=== PATIENT | female | born 1990 | race Caucasian/White ===

== ENCOUNTER 2021-03-06 18:15 | Emergency (ER) | payer BC ==
[2021-03-06] MEDS ORDERED: NA CHLORIDE 0.9% 1,000 ML ONE (20:20)
[2021-03-06] MEDS ORDERED: ONDANSETRON 4 MG/2 ML VIAL ONE (20:20)
[2021-03-06] MEDS ORDERED: MORPHINE 2 MG/ML SYR ONE (20:20)
[2021-03-06] MEDS ORDERED: FAMOTIDINE 20 MG/2 ML VIAL IV ONE (20:20)
[2021-03-06 20:21] LABS: Urine Blood 3+ (Negative); Urine Glucose Negative (Negative); Urine Protein 1+ (Negative); Urine Specific Gravity 1.025 (1.005-1.030); Urine pH 6.5 (5.0-7.0)
[2021-03-06 20:26] LABS: Absolute Lymphocytes (CBC) 0.8 K/uL (0.7-4.9); Basophils % 0.1 % (0-1.3); Hematocrit 37.2 % (36.0-45.0); Lymphocytes % 6.6 % (15.3-44.8); MPV 8.7 fL (7.6-11.3); RBC Red Blood Cell Count 4.04 M/uL (3.86-4.86)
[2021-03-06 20:30] LABS: Urine Specific Gravity/Preg 1.025 (1.005-1.030)
[2021-03-06 20:43] LABS: ALT/SGPT 18 U/L (12-78); AST/SGOT 14 U/L (15-37); Albumin 3.5 g/dL (3.4-5.0); Alkaline Phosphatase 90 U/L (45-117); BUN Blood Urea Nitrogen 13 mg/dL (7-18); Bicarbonate 24 mmol/L (21-32); Bilirubin Direct 0.3 mg/dL (0-0.2); Bilirubin Total 1.2 mg/dL (0.2-1.0); Glucose Level 94 mg/dL (74-106); Lipase 43 U/L (73-393); Potassium 3.3 mmol/L (3.5-5.1); Protein, Total 6.9 g/dL (6.4-8.2); Sodium Level 138 mmol/L (136-145)
[2021-03-06 21:03] LABS: Blood Morphology Comment NOT SEEN (NOT SEEN); Platelet Estimate ADEQ; White Blood Cell Scan OK (OK)
--- NOTE | 2021-03-06 21:56 | EDPHYS ---
Physician Documentation [facility] Name: Cole Mills Age: 30 yrs Sex: Female : 1990 Arrival Date: 03/06/2021 Time: 18:17 Bed 14 Private MD: ED Physician Pee Cruz HPI: 03/06 20:27 This 30 yrs old Female presents to ER via Ambulatory with complaints of mh7 Abdominal Pain, Nausea. 20:28 The patient presents with abdominal pain in the epigastric area. Onset: The mh7 symptoms/episode began/occurred this morning, today, at 03:00. The symptoms do not radiate. Associated signs and symptoms: Pertinent positives: nausea and vomiting, Pertinent negatives: anorexia, blood in stools, chest pain, constipation, diarrhea, dysuria, fever, headache, hematuria, palpitations, shortness of breath, vaginal discharge, vomiting blood. The symptoms are described as intermittent, vague, waxing/waning. Modifying factors: The symptoms are alleviated by nothing, the symptoms are aggravated by nothing. Severity of pain: At its worst the pain was moderate this morning, in the emergency department the pain has improved moderately. EMS DIRECTOR: 22:01 LMP 03/06/2021 zb Historical: - Allergies: 18:23 No Known Allergies; ll1 - PMHx: 18:23 None; ll1 - PSHx: 18:23 Tonsillectomy; Adenoids; ll1 - Immunization history:: Client reports having NOT received the Covid vaccine. Flu vaccine is not up to date. - Social history:: Smoking status: Patient denies any tobacco usage or history of. ROS: 20:28 Constitutional: Negative for fever, chills, and weight loss, Eyes: Negative for injury, mh7 pain, redness, and discharge, ENT: Negative for injury, pain, and discharge, Neck: Negative for injury, pain, and swelling, Cardiovascular: Negative for chest pain, palpitations, and edema, Respiratory: Negative for shortness of breath, cough, wheezing, and pleuritic chest pain, Back: Negative for injury and pain, : Negative for injury, bleeding, discharge, and swelling, MS/Extremity: Negative for injury and deformity, Skin: Negative for injury, rash, and discoloration, Neuro: Negative for headache, weakness, numbness, tingling, and seizure, Psych: Negative for depression, anxiety, suicide ideation, homicidal ideation, and hallucinations, Allergy/Immunology: Negative for hives, rash, and allergies, Endocrine: Negative for neck swelling, polydipsia, polyuria, polyphagia, and marked weight changes, Hematologic/Lymphatic: Negative for swollen nodes, abnormal bleeding, and unusual bruising. Exam: 20:28 Constitutional: This is a well developed, well nourished patient who is awake, alert, mh7 and in no acute distress. Head/Face: Normocephalic, atraumatic. Eyes: Pupils equal round and reactive to light, extra-ocular motions intact. Lids and lashes normal. Conjunctiva and sclera are non-icteric and not injected. Cornea within normal limits. Periorbital areas with no swelling, redness, or edema. Neck: Trachea midline, no thyromegaly or masses palpated, and no cervical lymphadenopathy. Supple, full range of motion without nuchal rigidity, or vertebral point tenderness. No Meningismus. Chest/axilla: Normal chest wall appearance and motion. Nontender with no deformity. No lesions are appreciated. Cardiovascular: Regular rate and rhythm with a normal S1 and S2. No gallops, murmurs, or rubs. Normal PMI, no JVD. No pulse deficits. Respiratory: Lungs have equal breath sounds bilaterally, clear to auscultation and percussion. No rales, rhonchi or wheezes noted. No increased work of breathing, no retractions or nasal flaring. Back: No spinal tenderness. No costovertebral tenderness. Full range of motion. Skin: Warm, dry with normal turgor. Normal color with no rashes, no lesions, and no evidence of cellulitis. MS/ Extremity: Pulses equal, no cyanosis. Neurovascular intact. Full, normal range of motion. Neuro: Awake and alert, GCS 15, oriented to person, place, time, and situation. Cranial nerves II-XII grossly intact. Motor strength 5/5 in all extremities. Sensory grossly intact. Cerebellar exam normal. Normal gait. Psych: Awake, alert, with orientation to person, place and time. Behavior, mood, and affect are within normal limits. 20:28 Abdomen/GI: Inspection: abdomen appears normal, Bowel sounds: normal, in all quadrants, mh7 Palpation: mild abdominal tenderness, in the epigastric area, mass, is not appreciated, rebound tenderness, is not appreciated, voluntary guarding, is not appreciated, involuntary guarding, is not appreciated, no appreciated organomegaly, Rectal exam: the exam is deferred, because of patient request, Indicators: McBurney's point is not tender, Simpson's sign is negative, Rovsing's sign is negative, Obturator sign is negative, Psoas sign is negative, Liver: no appreciated palpable abnormalities, Hernia: not appreciated. Vital Signs: 18:20 BP 102 / 72; Pulse 100; Resp 16; Temp 98.7; Pulse Ox 100% ; Weight 75.75 kg; Height 5 ll1 ft. 4 in. (162.56 cm); Pain 3/10; 20:29 BP 96 / 67; Pulse 73; Resp 16; Pulse Ox 100% on R/A; zb 21:55 BP 101 / 57; Pulse 85; Resp 16; Pulse Ox 100% on R/A; zb 18:20 Body Mass Index 28.67 (75.75 kg, 162.56 cm) ll1 MDM: 20:28 Differential diagnosis: bowel obstruction, gastritis, gastroesophageal reflux disease, mh7 non-specific abd pain, urinary tract infection. Data reviewed: vital signs, nurses notes, lab test result(s), CBC, electrolytes, urinalysis, UPT: negative. Data interpreted: Pulse oximetry: on room air is 100 %. Interpretation: normal. Counseling: I had a detailed discussion with the patient and/or guardian regarding: the historical points, exam findings, and any diagnostic results supporting the discharge/admit diagnosis, lab results, the need for outpatient follow up, to return to the emergency department if symptoms worsen or persist or if there are any questions or concerns that arise at home. Response to treatment: the patient's symptoms have resolved after treatment, the patient's blood pressure is in an acceptable range, mental status has returned to baseline, the patient no longer shows bradycardia, the patient is not short of breath, the patient is not tachycardic, the patient's pain is gone, the patient's temperature has normalized, Tolerating PO intake without any difficultly. Refusal of service: The patient/guardian displays adequate decision making capability and despite a detailed discussion of alternatives, benefits, risks, and consequences refuses: CT Scan. 21:55 Patient medically screened. [facility] 03/06 19:37 Order name: Basic Metabolic Panel [facility] 03/06 19:37 Order name: CBC with Diff; Complete Time: 21:09 [facility] 03/06 19:37 Order name: Hepatic Function; Complete Time: 21:09 [facility] 03/06 19:37 Order name: Lipase; Complete Time: 21:09 [facility] 03/06 19:38 Order name: Basic Metabolic Panel; Complete Time: 21:09 [facility] 03/06 20:21 Order name: Urine Dipstick-Ancillary; Complete Time: 20:27 [facility] 03/06 19:37 Order name: IV Saline Lock; Complete Time: 20:15 [facility] 03/06 19:37 Order name: Labs collected and sent; Complete Time: 20:15 [facility] 03/06 20:24 Order name: Urine --Ancillary (enter results); Complete Time: 20:43 03/06 21:03 Order name: CBC Smear Scan; Complete Time: 21:09 [facility] 03/06 19:37 Order name: Urine Dipstick-Ancillary (obtain specimen); Complete Time: 20:15 [facility] 03/06 19:37 Order name: Urine Test (obtain specimen); Complete Time: 20:15 [facility] 03/06 21:29 Order name: PO challenge; Complete Time: 21:36 [facility] Administered Medications: 20:13 Drug: Pepcid (famotidine) 20 mg Route: IVP; Site: right antecubital; zb 21:24 Follow up: Response: No adverse reaction; Marked relief of symptoms zb 20:14 Drug: Zofran (Ondansetron) 4 mg Route: IVP; Site: right antecubital; zb 21:23 Follow up: Response: No adverse reaction; Marked relief of symptoms zb 20:15 Drug: NS 0.9% 1000 ml Route: IV; Rate: 1000 ml; Site: right antecubital; zb 20:15 Not Given (Patient Refused): morphine 2 mg IVP once; (PAIN>8) RASS on ADMN: Combtv4, zb Very Agttd3, Agttd2, Rstlss1, AlertClm0, Drwsy-1, LtSdtn-2, ModSdtn-3, DpSdtn-4, UnArsble-5 x2 Disposition: 03/06/21 21:55 Discharged to Home. Impression: Gastritis, unspecified. - Condition is Stable. - Discharge Instructions: Gastritis, Adult, [id number]. - Prescriptions for Zofran ODT 4 mg Oral tablet,disintegrating - place 1 tablet by TRANSLINGUAL route every 8 hours As needed; 6 tablet. Pepcid 20 mg Oral Tablet - take 1 tablet by ORAL route every 12 hours for 5 days; 10 tablet. - Medication Reconciliation Form, Thank You Letter, Antibiotic Education, Prescription Opioid Use form. - Follow up: Private Physician; When: 1 - 2 days; Reason: Recheck today's complaints, Continuance of care, Re-evaluation by your physician. - Problem is new. - Symptoms are resolved. Signatures: Dispatcher [employer] EDMS Rohit Butts RN RN ll1 Pee Cruz MD MD mh7 Irene Perez RN RN zb Corrections: (The following items were deleted from the chart) 22:04 21:55 03/06/2021 21:55 Discharged to Home. Impression: Gastritis, unspecified. zb Condition is Stable. Forms are Medication Reconciliation Form, Thank You Letter, Antibiotic Education, Prescription Opioid Use. Follow up: Private Physician; When: 1 - 2 days; Reason: Recheck today's complaints, Continuance of care, Re-evaluation by your physician. Problem is new. Symptoms are resolved. mh7
--- NOTE | 2021-03-06 21:56 | ER ---
Nurse's Notes [facility] Name: Cole Mills Age: 30 yrs Sex: Female : 1990 Arrival Date: 03/06/2021 Time: 18:17 Bed 14 Private MD: Diagnosis: Gastritis, unspecified Presentation: 03/06 18:20 Chief complaint: Patient states: Epigastric pain with N/V since 3 am. No fever. ll1 Coronavirus screen: Client denies travel out of the [place] in the last 14 days. At this time, the client does not indicate any symptoms associated with coronavirus-19. Ebola Screen: Patient denies travel to an Ebola-affected area in the 21 days before illness onset. Initial Sepsis Screen: Does the patient meet any 2 criteria? No. Patient's initial sepsis screen is negative. Does the patient have a suspected source of infection? Yes: Acute abdominal pain. Risk Assessment: Do you want to hurt yourself or someone else? Patient reports no desire to harm self or others. Onset of symptoms was March 06, 2021. 18:20 Method Of Arrival: Ambulatory [facility] 18:20 Acuity: MADINA 3 1 GRINDER HARDBOARD: 22:01 LMP 03/06/2021 zb Historical: - Allergies: 18:23 No Known Allergies; ll1 - PMHx: 18:23 None; ll1 - PSHx: 18:23 Tonsillectomy; Adenoids; ll1 - Immunization history:: Client reports having NOT received the Covid vaccine. Flu vaccine is not up to date. - Social history:: Smoking status: Patient denies any tobacco usage or history of. Screenin:16 Abuse screen: Denies threats or abuse. Denies injuries from another. Nutritional zb screening: No deficits noted. Tuberculosis screening: No symptoms or risk factors identified. Fall Risk None identified. Assessment: 20:16 General: Appears in no apparent distress. uncomfortable, Behavior is calm, cooperative. zb Pain: Complains of pain in abdomen Pain currently is 2 out of 10 on a pain scale. at worst was 9 out of 10 on a pain scale. Quality of pain is described as tender. Neuro: Level of Consciousness is awake, alert, obeys commands, Oriented to person, place, time, situation. Cardiovascular: Capillary refill < 3 seconds in bilateral. Respiratory: Airway is patent Respiratory effort is even, unlabored, Respiratory pattern is regular, symmetrical. GI: Abdomen is round Bowel sounds present X 4 quads. Abd is soft and non tender X 4 quads. Reports nausea, vomiting, Patient currently denies diarrhea. Derm: Skin is intact, is healthy with good turgor, Skin is normal. Musculoskeletal: Circulation, motion, and sensation intact. Range of motion: intact in all extremities. 21:25 Reassessment: Verbal order for po challenge. zb 21:27 Reassessment: Patient appears in no apparent distress at this time. Patient and/or zb family updated on plan of care and expected duration. Pain level reassessed. Patient is alert, oriented x 3, equal unlabored respirations, skin warm/dry/pink. ecp at bedside. 21:35 Reassessment: PO challenge completed. no n/v at this time. zb Vital Signs: 18:20 BP 102 / 72; Pulse 100; Resp 16; Temp 98.7; Pulse Ox 100% ; Weight 75.75 kg; Height 5 ll1 ft. 4 in. (162.56 cm); Pain 3/10; 20:29 BP 96 / 67; Pulse 73; Resp 16; Pulse Ox 100% on R/A; zb 21:55 BP 101 / 57; Pulse 85; Resp 16; Pulse Ox 100% on R/A; zb 18:20 Body Mass Index 28.67 (75.75 kg, 162.56 cm) ll1 ED Course: 18:17 Patient arrived in ED. ds1 18:22 Triage completed. ll1 18:23 Arm band placed on. ll1 19:24 Pee Cruz MD is Attending Physician. 7 19:28 Irene Perez, MARY is Primary Nurse. zb 20:16 Initial lab(s) drawn, by nm, sent to lab. Inserted saline lock: 20 gauge in right zb antecubital area, using aseptic technique. Blood collected. 20:23 Patient has correct armband on for positive identification. Placed in gown. Bed in low zb position. Call light in reach. copy worker on. Pulse ox on. NIBP on. Door closed. Noise minimized. 22:01 No provider procedures requiring assistance completed. IV discontinued, intact, zb bleeding controlled, No redness/swelling at site. Pressure dressing applied. Administered Medications: 20:13 Drug: Pepcid (famotidine) 20 mg Route: IVP; Site: right antecubital; zb 21:24 Follow up: Response: No adverse reaction; Marked relief of symptoms zb 20:14 Drug: Zofran (Ondansetron) 4 mg Route: IVP; Site: right antecubital; zb 21:23 Follow up: Response: No adverse reaction; Marked relief of symptoms zb 20:15 Drug: NS 0.9% 1000 ml Route: IV; Rate: 1000 ml; Site: right antecubital; zb 20:15 Not Given (Patient Refused): morphine 2 mg IVP once; (PAIN>8) RASS on ADMN: Combtv4, zb Very Agttd3, Agttd2, Rstlss1, AlertClm0, Drwsy-1, LtSdtn-2, ModSdtn-3, DpSdtn-4, UnArsble-5 x2 Outcome: 21:55 Discharge ordered by . beck 22:01 Discharged to home ambulatory. zb 22:01 Condition: stable 22:01 Discharge instructions given to patient, Instructed on discharge instructions, follow up and referral plans. medication usage, Demonstrated understanding of instructions, follow-up care, medications, Prescriptions given X 2. 22:04 Patient left the ED. zb Signatures: Gabriella Veloz ds1 Rohit Butts RN RN ll1 Pee Cruz MD MD mh7 Brown, Zipporah, RN RN zaretha Corrections: (The following items were deleted from the chart) 21:36 21:27 Reassessment: Patient appears in no apparent distress at this time. Patient zb and/or family updated on plan of care and expected duration. Pain level reassessed. Patient is alert, oriented x 3, equal unlabored respirations, skin warm/dry/pink. hospitalist at bedside. zb
[2021-03-06 22:27] VITALS: TEMP 98.7; O2SAT 100
[2021-03-06 23:04] VITALS: BP 101/57
== END 2021-03-06 22:04 | disposition home or self-care (01) ==
LOC: ER 18:15
DX: K29.70 Gastritis, unspecified, without bleeding (principal)
CPT/HCPCS: 85025; 80048; 36415; 81025; 80076; 81003; 83690; J7030; J2405; 96374; 96375; 99284; J2270

== ENCOUNTER 2022-05-27 23:57 | Emergency (ER) | payer BC ==
[2022-05-28] MEDS ORDERED: NA CHLORIDE 0.9% 1,000 ML ONE ×2 (00:59→02:19)
[2022-05-28] MEDS ORDERED: PROMETHAZINE INJ 25 MG/ML AMP ONE (00:59)
[2022-05-28 01:16] LABS: Absolute Lymphocytes (CBC) 0.8 K/uL (0.7-4.9); Hematocrit 39.3 % (36.0-45.0); Lymphocytes % 10.8 % (15.3-44.8); MCV 92.1 fL (80-100); MPV 8.5 fL (7.6-11.3); RBC Red Blood Cell Count 4.27 M/uL (3.86-4.86)
[2022-05-28 01:42] LABS: Potassium 3.5 mmol/L (3.5-5.1)
[2022-05-28 01:45] LABS: Urine Blood 3+ (Negative); Urine Glucose Negative (Negative); Urine Protein Negative (Negative)
--- NOTE | 2022-05-28 03:30 | EDPHYS ---
Physician Documentation [facility] Name: Cole Mills Age: 31 yrs Sex: Female : 1990 Arrival Date: 05/27/2022 Time: 23:59 Bed 8 Private MD: ED Physician David Grande HPI: 05/28 00:47 This 31 yrs old Female presents to ER via Ambulatory with complaints of Vomiting, kb Vaginal Bleeding, + Preg <12wks. 00:48 The patient presents to the emergency department with abdominal pain, of the right kb lower quadrant and left lower quadrant, that started today, described as crampy, nausea and vomiting, that started last night, vaginal bleeding, that is light, reports using 2 pads or tampons per day. The estimated gestational age is 7 weeks. course: care: none, Leakage of Fluid: none appreciated, Ultrasound: the patient has not had an ultrasound. Previous pregnancies: in previous pregnancies patient has had. Associated signs and symptoms: Pertinent positives: abdominal pain, nausea, vaginal bleeding, vomiting. The patient has not experienced similar symptoms in the past. The patient has not recently seen a physician. 02:12 Pt reports nausea and vomiting all day. reports vaginal bleeding that started this kb afternoon with cramps to abd and back. PIPE TURNER: 00:48 3, 1, Living 1, LMP 04/03/2022 kb 03:40 LMP 02/24/2022 kl Historical: - Allergies: 00:42 No Known Allergies; as6 - Home Meds: 00:42 None [Active]; as6 - PMHx: 00:42 None; as6 - PSHx: 00:42 Tonsillectomy; as6 - Immunization history:: Client reports having NOT received the Covid vaccine. - Social history:: Smoking status: Patient denies any tobacco usage or history of. ROS: 00:45 Constitutional: Negative for fever, chills, and weight loss. kb 00:45 Abdomen/GI: Positive for nausea and vomiting, abdominal cramps. 00:45 : Positive for vaginal bleeding. 00:45 All other systems are negative. Exam: 00:46 Head/Face: Normocephalic, atraumatic. ENT: Moist Mucous membranes Cardiovascular: kb Regular rate and rhythm with a normal S1 and S2. No gallops, murmurs, or rubs. No pulse deficits. Respiratory: Respirations even and unlabored. No increased work of breathing. Talking in full sentences Abdomen/GI: Soft, non-tender. No distention Skin: Warm, dry with normal turgor. Normal color. MS/ Extremity: Pulses equal, no cyanosis. Neurovascular intact. Full, normal range of motion. Neuro: Awake and alert, GCS 15, oriented to person, place, time, and situation. Moves all extremities. Normal gait. Psych: Awake, alert, with orientation to person, place and time. Behavior, mood, and affect are within normal limits. 00:46 Constitutional: The patient appears alert, awake, uncomfortable. Vital Signs: 00:39 BP 127 / 71; Pulse 100; Resp 20 S; Temp 98.5(O); Pulse Ox 100% on R/A; Weight 78.47 kg as6 (R); Height 5 ft. 4 in. (162.56 cm) (R); Pain 4/10; 03:15 BP 101 / 58; Pulse 76; Resp 15; Pulse Ox 100% on R/A; ll3 03:39 BP 102 / 54; Pulse 78; Resp 18; Pulse Ox 99% on R/A; kl 00:39 Body Mass Index 29.70 (78.47 kg, 162.56 cm) as6 MDM: 00:05 Patient medically screened. kb 00:45 Data reviewed: vital signs, nurses notes. Data interpreted: Pulse oximetry: on room air kb is 100 %. Interpretation: normal. 02:07 ED course: Pt states she passed a large clot when she went to the restroom.. kb 02:12 ED course: pt has appt with help center in the morning. Will keep that appt kb to have repeat Hcg ordered. 02:15 Transition of care: After a detail discussion of the patient's case, care is kb transferred to David Grande MD. 02:34 Differential diagnosis: miscarriage, threatened . ED course: U/S without rn evidence of IUP, patient states passed "large blood clot" just prior to u/s. Will dc home with repeat beta-hcg and return precautions. . 05/28 00:06 Order name: Abo/rh Typing; Complete Time: 03:29 kb 05/28 00:06 Order name: Basic Metabolic Panel; Complete Time: 01:59 kb 05/28 00:06 Order name: CBC with Diff; Complete Time: 01:33 kb 05/28 00:06 Order name: Quantitative Hcg; Complete Time: 01:59 kb 05/28 01:45 Order name: Urine Dipstick-Ancillary; Complete Time: 01:48 EDMS 05/28 01:56 Order name: Urine --Ancillary (enter results); Complete Time: 03:29 ds4 05/28 00:06 Order name: IV Saline Lock; Complete Time: 01:10 kb 05/28 00:06 Order name: Labs collected and sent; Complete Time: 01:10 kb 05/28 00:06 Order name: NPO; Complete Time: 01:10 kb 05/28 00:06 Order name: Urine Dipstick-Ancillary (obtain specimen); Complete Time: 01:46 kb 05/28 00:06 Order name: US Transvaginal Ob kb 05/28 00:06 Order name: Urine Test (obtain specimen); Complete Time: 01:46 kb Administered Medications: 01:10 Drug: NS 0.9% 1000 ml Route: IV; Rate: 1000 ml; Site: right antecubital; ll3 01:10 Not Given (Patient Refused): Phenergan (promethazine) 6.25 mg IVP once ll3 02:14 Drug: NS 0.9% 1000 ml Route: IV; Rate: 1000 ml; Site: right antecubital; ll3 Disposition: 05:02 Co-signature as Attending Physician, David Grande MD. rn Disposition Summary: 05/28/22 03:29 Discharge Ordered Location: Home rn Problem: new rn Symptoms: have improved rn Condition: Stable rn Diagnosis - Possible spontaneous , without complications rn Followup: rn - With: Private Physician - When: 48 Hours - Reason: Repeat Beta-HCG (48 Hours) Discharge Instructions: - Discharge Summary Sheet rn - Miscarriage rn - Threatened Miscarriage rn Forms: - Medication Reconciliation Form rn - Thank You Letter rn - Antibiotic churn operator - Prescription Opioid Use rn Signatures: Dispatcher [employer] Kalani Cook, STENOTYPE OPERATOR-C STENOTYPE OPERATOR-David Farfan MD MD rn Slawson, Ashby, RN RN as6 Janneth Maria RN RN ll3
--- NOTE | 2022-05-28 03:30 | ER ---
Nurse's Notes [facility] Name: Cole Mills Age: 31 yrs Sex: Female : 1990 Arrival Date: 05/27/2022 Time: 23:59 Bed 8 Private MD: Diagnosis: Possible spontaneous , without complications Presentation: 05/28 00:39 Chief complaint: Patient states: n/v, abdominal pain/cramping. pt reports being 7 weeks as6 , vaginal bleeding since morning. Coronavirus screen: At this time, the client does not indicate any symptoms associated with coronavirus-19. Ebola Screen: No symptoms or risks identified at this time. Initial Sepsis Screen: Does the patient meet any 2 criteria? No. Patient's initial sepsis screen is negative. Does the patient have a suspected source of infection? No. Patient's initial sepsis screen is negative. Risk Assessment: Do you want to hurt yourself or someone else? Patient reports no desire to harm self or others. Onset of symptoms was May 27, 2022. 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 - Social history:: Smoking status: Patient denies any tobacco usage or history of. Screenin:07 Abuse screen: Denies threats or abuse. Denies injuries from another. Nutritional ll3 screening: No deficits noted. Tuberculosis screening: No symptoms or risk factors identified. Fall Risk None identified. Assessment: 01:00 General: Appears uncomfortable, Behavior is calm, cooperative. Pain: Complains of pain ll3 in left lower quadrant and right lower quadrant Pain currently is 4 out of 10 on a pain scale. Quality of pain is described as crampy. Neuro: Level of Consciousness is awake, alert, obeys commands, Oriented to person, place, time, situation. Respiratory: Respiratory effort is even, unlabored, Respiratory pattern is regular, symmetrical. GI: Abdomen is round non-distended. : Reports vaginal bleeding that is brown, with clots. Derm: Skin is pink, warm \T\ dry. 03:15 Reassessment: No changes from previously documented assessment. Patient and/or family ll3 updated on plan of care and expected duration. Pain level reassessed. Patient is alert, oriented x 3, equal unlabored respirations, skin warm/dry/pink. 03:39 Reassessment: Patient appears in no apparent distress at this time. Patient and/or kl family updated on plan of care and expected duration. Pain level reassessed. Patient is alert, oriented x 3, equal unlabored respirations, skin warm/dry/pink. Vital Signs: 00:39 BP 127 / 71; Pulse 100; Resp 20 S; Temp 98.5(O); Pulse Ox 100% on R/A; Weight 78.47 kg as6 (R); Height 5 ft. 4 in. (162.56 cm) (R); Pain 4/10; 03:15 BP 101 / 58; Pulse 76; Resp 15; Pulse Ox 100% on R/A; ll3 03:39 BP 102 / 54; Pulse 78; Resp 18; Pulse Ox 99% on R/A; kl 00:39 Body Mass Index 29.70 (78.47 kg, 162.56 cm) as6 ED Course: 05/27 23:59 Patient arrived in ED. bp1 05/28 00:00 [facility] Sever[facility]C [facility] kb 00:00 David Grande MD is Attending Physician. kb 00:42 Triage completed. as6 00:43 Arm band placed on. as6 01:29 US Transvaginal Ob In Process Unspecified. EDMS 03:07 Patient has correct armband on for positive identification. Placed in gown. Bed in low ll3 position. Call light in reach. Side rails up X 1. 03:07 No provider procedures requiring assistance completed. ll3 03:39 IV discontinued, intact, bleeding controlled, No redness/swelling at site. Pressure kl dressing applied. Administered Medications: 01:10 Drug: NS 0.9% 1000 ml Route: IV; Rate: 1000 ml; Site: right antecubital; ll3 01:10 Not Given (Patient Refused): Phenergan (promethazine) 6.25 mg IVP once ll3 02:14 Drug: NS 0.9% 1000 ml Route: IV; Rate: 1000 ml; Site: right antecubital; ll3 Medication: 03:40 VIS not applicable for this client. kl Outcome: 03:29 Discharge ordered by . rn 03:40 Discharged to home ambulatory, with family. kl 03:40 Condition: stable 03:40 Discharge instructions given to patient, Instructed on discharge instructions, follow up and referral plans. Demonstrated understanding of instructions, follow-up care. 03:41 Patient left the ED. Signatures: Dispatcher [employer] EDMS Kalani Severino, INSECTICIDE MIXER-C INSECTICIDE MIXER-Tammy Noyola, RN RN David Trimble MD MD rn Paniauga, Brittany bp1 Slawson, Ashby, RN RN as6 Janneth Maria RN RN ll3
[2022-05-28 04:50] VITALS: TEMP 98.5
[2022-05-28 04:57] VITALS: BP 102/54; O2SAT 99
--- NOTE | 2022-05-28 11:40 | RAD REPORT ---
EXAM DESCRIPTION: US , Transvaginal CLINICAL HISTORY: The patient is 31 years old and is Female; Abd cramping, TECHNIQUE: Real-time transvaginal obstetrical ultrasound of the maternal pelvis and a first trimeste r with image documentation. Transvaginal imaging was used for better evaluation of the fe tus and adnexa. COMPARISON: No relevant prior studies available. FINDINGS: GESTATION: There is no evidence of an intrauterine . UTERUS/CERVIX: Nabothian cysts are present. No myometrial mass. OVARIES: The left ovary is normal. Normal arterial and venous color Doppler and spectral waveform is present. The right ovary is not visualized secondary to bowel gas. FREE FLUID: No free fluid. IMPRESSION: No evidence of an intrauterine . Findings suggest a of unknown locati on. Recommend continued follow-up with serial hCG and ultrasound. Electronically signed by: Carina Dorado MD 05/28/2022 2:14 AM CDT Due to temporary technical issues with the PACS/Fluency reporting system, reports are being signed by the in house radiologists without review as a courtesy to insure prompt reporting. The interpreting radiologist is fully responsible for the content of the report.
== END 2022-05-28 03:41 | disposition home or self-care (01) ==
LOC: ER 23:57
DX: O21.9 Vomiting of pregnancy, unspecified (principal); O26.891 Other specified pregnancy related conditions, first trimester; Z3A.01 Less than 8 weeks gestation of pregnancy
CPT/HCPCS: 85025; 80048; 36415; 86900; 81025; 86901; 84702; 81003; 76817; 99283; J7030 ×2; J2550